=== PATIENT | male | born 1985 | race Caucasian/White ===

== ENCOUNTER 2021-11-26 20:32 | Emergency (ER) | payer OTHER ==
[~2021-11-26] VITALS: Ht 180.3 cm; Wt 81.6 kg
== END 2021-11-27 00:46 | disposition home or self-care (01) ==
LOC: ER 20:32
DX: S00.83XA Contusion of other part of head, initial encounter (principal); W19.XXXA Unspecified fall, initial encounter; Y92.89 Other specified places as the place of occurrence of the external cause; R55 Syncope and collapse